=== PATIENT | male | born 1965 | race Caucasian/White ===

== ENCOUNTER 2024-06-11 23:32 | Inpatient (IN) | payer MEDICARE, SELFPAY ==
[2024-06-11] VITALS (13 sets, daily range): BP systolic 131–158; BP diastolic 74–109; BMI 25.1
[2024-06-11 16:13] LABS: % Basophils 0.7 % (0-2); % Eosinophils 0.8 % (0-6); % Immature Granulocytes 0.2 % (0-0.5); % Lymphocytes 17.4 % (20.5-51.1); % Monocytes 9.5 % (1.7-9.3); % Neutrophils 71.4 % (42.2-75.2); Absolute Eosinophils 0.1 10^3/uL (0-0.7); Absolute Monocytes 0.6 10^3/uL (0.1-0.6); Absolute Neutrophils 4.3 10^3/uL (1.4-6.5); Hematocrit 37.4 % (39.0-52.0); Hemoglobin 12.9 g/dL (13.0-18.0); Mean Corp Hgb Conc. 34.5 g/dL (33.0-37.0); Mean Corpuscular Hgb 31.5 pg (27.0-31.0); Mean Corpuscular Volume 91.2 fL (80.0-94.0); Nucleated Red Blood Cells % 0 % (-); Red Cell Dist. Width 13.8 % (11.5-14.5)
--- NOTE | 2024-06-11 16:14 | ED.GENMED ---
History of Present Illness
<WHITNEY Jacobson - Last Filed: 06/13/24 23:21>
General
Chief Complaint: Fall
Source: patient
Exam Limitations: none
Time Seen by Provider: 06/11/24 15:59
Nursing documentation reviewed up to this point in time: agreed with
History of Present Illness
History of Present Illness:
Patient is a 59-year-old male with history of cancer, alcohol abuse, DE/hypertension hyperlipidemia reflux GI bleed presents to the ER for evaluation. Patient reports he was on the toilet and started to have shaking in his right arm and pain which
radiated to his chest. He reports it lasted for about a minute and he fell over into the bathtub. He denies hitting his head. He denies any headache. He was able to get himself up and called EMS. He denies any chest pain or pain now.
Pt admits to drinking alcohol last night around 8 pm.
Denies history of withdrawal seizures.
PT reports he is currently being treated at [facility]'s oncology for obvious signs of lymphoma for 'lymph node cancer .'He receives infusions every 3 weeks. Pt also mentions history of melanoma.
He reports he stopped all of his cardiac meds due to expense and no longer takes ASA or blood thinners.
Past History
<WHITNEY Jacobson - Last Filed: 06/13/24 23:21>
Past History
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
ED Past Surgical History: Orthopedic
Social History
Tobacco: Former smoker
Alcohol: Daily
Drug: Marijuana (Medical marijuana)
Personal: Partner
Living: with family (Resides with girlfriend.)
Employment: Disabled
Family History
Family History: CAD
Phy Exam
<WHITNEY Jacobson - Last Filed: 06/13/24 23:21>
General Physical Exam
General Presentation: no apparent distress
General age: appears stated age
General Skin: warm and dry
General Habitus: elderly
General Mental: alert
General Hydration: dry mucous membranes
Cardiovascular Exam
Cardiovascular Exam: tachycardia
Pulmonary Exam
Pulmonary Exam: lungs clear and no respiratory distress
Neurological Exam
Neurological Exam: alert, oriented x3, no motor deficits and no sensory deficits
[place] Coma Scale
Eye Opening: Spontaneous
Verbal Response: Oriented
Motor Response: Obeys Commands
GCS Total Score: 15
Musculoskeletal Exam
Musculoskeletal Exam: full ROM
Skin Exam
Skin Exam: normal color and warm/dry
Psychiatric Exam
Psychiatric Exam: normal mood/affect
Course
<WHITNEY Jacobson - Last Filed: 06/13/24 23:21>
Orders/Labs/Results
Orders:
Orders
06/11/24 15:52
Electrocardiogram (*1) Urgent
Reason for Study: Chest Pain
Cardiac Monitoring- Treatment ONCE
EKG- Treatment ONCE
IV Insert/Care/Rem.- Treatment PRN
06/11/24 15:59
Complete Blood Count/With Diff Urgent
Comprehensive Metabolic Panel Urgent
Troponin I Urgent
06/11/24 16:17
0.9% Sodium Chloride 1000 ml [Nss] 1,000 ml IV BOLUS
06/11/24 16:19
CT Head W/o Iv Contrast Urgent
Comment:
Reason For Exam: trauma
06/11/24 16:51
CT Cervical Spine W/o Iv Contr Urgent
Comment:
Reason For Exam: trauma
06/11/24 17:47
Dexamethasone Sod Phosphate [Decadron] 6 mg IV NOW STA
Levetiracetam Injectable [Keppra] 1,000 mg IV NOW STA
06/11/24 18:19
Dexamethasone Sod Phosphate [Decadron] 4 mg .ROUTE .STK-MED ONE
06/11/24 18:20
Lorazepam [Ativan] 0.5 mg IV NOW STA
06/11/24 21:40
IV Insert/Care/Rem.- Treatment PRN
06/11/24 21:52
Type+Screen Urgent
PT/INR [Prothrombin Time] Urgent
PTT Urgent
06/11/24 22:47
Lorazepam [Ativan] 0.5 mg IV NOW STA
06/11/24 23:00
Admit/Transfer Patient As Directed
Co-Sign Provider:
Level of Care: Inpatient admission
Assign to:: IMU- Intermediate Care
Physician / Group: hospitalist
Diagnosis: seizure, metastatic brain disease
Reason for Hospitalization: seizure
Expected length of stay greater than two midnights?: Yes
ELOS- Estimated Length of Stay in days: 2
I certify the patient meets the requirements for IP care: Yes
06/11/24 23:01
Code Status As Directed
Resuscitation Status: Full Code
PRN Pain Medication Management As Directed
May give lesser potent ordered pain med per pt: Yes
preference::
Protocol:: Medication orders for pain may be administered in a
manner that supports deferring to patient preference
when the pt is:
- Requesting an ordered lesser potent pain medication.
Least to most potent pain medications are defined
as: acetaminophen < NSAID < tramadol < opioids
(morphine, oxycodone, hydromorphone).
- Requesting a lesser dose of the same medication IF
ORDERED.
- Requesting a less intrusive route of administration
if both routes are prescribed by the provider (PO <
IV).
06/12/24 00:15
0.9% Sodium Chloride [Nss (Preservative Free)] See Protocol IV PRN PRN
Acetaminophen [Tylenol/Feverall] 650 mg RECTAL Q4HPRN PRN
Acetaminophen [Tylenol] 650 mg PO Q4HPRN PRN
FOLic ACID [Folvite] 1 mg 0.9% Sodium Chloride 50 ml [Nss] 50 ml IV DAILYPRN
Labetalol HCl [Trandate] 10 mg IV Q6HPRN PRN
Lorazepam [Ativan] 1 mg IV Q1HPRN PRN
Lorazepam [Ativan] 1 mg PO Q2HPRN PRN
Lorazepam [Ativan] 2 mg IV Q1HPRN PRN
06/12/24 00:15
Consult Notification Routine
Specialty to Notify: Neurology
Date consulting provider notified: 06/12/24
Time consulting provider notified: 07:10
Notified:: Service
NEUROLOGY CONSULT Urgent
Consulting Provider: Jani Ghosh
Was physician already notified: No
Reason for consult: new hemorrhagic brain mets with vasogenic edema and right sided partial sz
Activity As Directed
Activity Level: With Assistance
Bedside Glucose Monitoring As Directed
Frequency: AC&HS
Head of Bed-Restrictions As Directed
Elevation Level: 30 degress
MSAS SCORE As Directed
MSAS Score 0-4: Repeat MSAS every 2 hours until 0-4 for three consecutive assessments, then every 4 hours x 48
hours.
MSAS Score 5-7: For MILD withdrawl symptoms. Repeat MSAS and RASS every 2 hours
MSAS Score 8-11: For MODERATE withdrawal symptoms. Repeat MSAS and RASS every 1 hour. Consider ICU or IMU
level of care.
MSAS Score > 11: For SEVERE withdrawal symptoms. Repeat MSAS and RASS every 1 hour. Notify provider, consider
ICU level of care.
MSAS Additional Instructions: If no improvement or no decrease in score from severe to moderate within 12
hours, consult psychiatry
MSAS Notify Provider: Notify provider if patient requires more than 10 mg of Lorazepam in eight hour period.
NIH Stroke Scale As Directed
Directions: Per protocol
Comment: every shift and with any change in condition or mental status
Neurological Checks As Directed
Frequency: q4h
Additional Instructions:: q4h x 24 hours, then every shift and with any change in condition or mental status.
Pneumatic Compression Sleeves As Directed
Type: Knee high
Precautions As Directed
Type of Precautions: Seizure
Vital Signs As Directed
Frequency: Per unit guidelines
Additional Instructions:: goal SBP 120-140 mmHg
Pt Eval And Treat Routine
Activity Level: With Assistance
DX Deep Vein Thrombosis Video Routine
06/12/24 01:00
Dexamethasone Sod Phosphate [Decadron] 4 mg IV Q6
06/12/24 05:00
Levetiracetam Injectable [Keppra] 750 mg IV Q12H
06/12/24 06:01
Basic Metabolic Panel IN AM
Cardiovascular Evaluation IN AM
Complete Blood Count/No Diff IN AM
Glycohemoglobin (HgbA1c) IN AM
Magnesium IN AM
Phosphorus IN AM
06/12/24 07:30
Insulin Aspart Corrective Mod [Novolog Flexpen-Moderate Resistance] See Protocol SC AC
06/12/24 08:00
Docusate Sodium [Colace] 100 mg PO BID
FOLic ACID [Folvite] 1 mg PO DAILY
Lisinopril [Zestril] 2.5 mg PO DAILY
Metoprolol Xl [Toprol Xl] 25 mg PO DAILY
Thiamine Injection 200 mg IV Q12
06/12/24 Dinner
1800 calorie (15 carb) Diabetic
At Your Request: Full Participation
Does patient need a safe tray?: No
06/12/24 22:00
Insulin Glargine Lantus [Lantus] 5 units Subcutaneous Insulin Syringe [Syringe-Insulin] 0 unit SC HS
06/15/24 08:00
Thiamine HCl [Vitamin B1] 100 mg PO BID
Abnormal Lab Results
06/11/24 06/11/24
15:59 21:52
RBC 4.10 L 10^6/uL
(4.70-6.10)
Hgb 12.9 L g/dL
(13.0-18.0)
Hct 37.4 L %
(39.0-52.0)
MCH 31.5 H pg
(27.0-31.0)
Plt Count 82 L 10^3/uL
(130-400)
Absolute Lymphs (auto) 1.0 L 10^3/uL
(1.2-3.4)
Lymphocytes % 17.4 L %
(20.5-51.1)
Monocytes % 9.5 H %
(1.7-9.3)
PT 14.8 H Sec
(11.4-14.6)
Sodium 133 L mmol/L
(135-145)
Potassium 3.3 L mmol/L
(3.5-5.1)
Chloride 90 L mmol/L
(98-107)
BUN 5 L mg/dl
(9-20)
Creatinine 0.6 L mg/dL
(0.7-1.3)
Glucose 207 H mg/dl
(70-99)
Total Bilirubin 4.1 H mg/dl
(0.2-1.3)
AST 161 H U/L
(17-59)
Alkaline Phosphatase 155 H U/L
(38-126)
06/11/24 15:59
06/11/24 15:59
Vital Signs
Initial and Last Documented VS:
Initial Vital Signs
Pulse Resp BP Pulse Ox
120 14 131/94 98
06/11/24 15:52 06/11/24 15:52 06/11/24 15:52 06/11/24 15:52
Last Documented Vital Signs
Temp Pulse Resp BP Pulse Ox
97.5 F 79 25 105/73 96
06/13/24 19:39 06/13/24 21:36 06/13/24 21:36 06/13/24 21:36 06/13/24 20:[address] Interpreter consulted with Physician
Certified Court Interpreter consulted with physician?: Yes
Name of Physician Consulted: DR Pandya
<Toribio Pandya MD - Last Filed: 06/12/24 13:55>
Orders/Labs/Results
Orders:
Orders
06/11/24 15:52
Electrocardiogram (*1) Urgent
Reason for Study: Chest Pain
Cardiac Monitoring- Treatment ONCE
EKG- Treatment ONCE
IV Insert/Care/Rem.- Treatment PRN
06/11/24 15:59
Complete Blood Count/With Diff Urgent
Comprehensive Metabolic Panel Urgent
Troponin I Urgent
06/11/24 16:17
0.9% Sodium Chloride 1000 ml [Nss] 1,000 ml IV BOLUS
06/11/24 16:19
CT Head W/o Iv Contrast Urgent
Comment:
Reason For Exam: trauma
06/11/24 16:51
CT Cervical Spine W/o Iv Contr Urgent
Comment:
Reason For Exam: trauma
06/11/24 17:47
Dexamethasone Sod Phosphate [Decadron] 6 mg IV NOW STA
Levetiracetam Injectable [Keppra] 1,000 mg IV NOW STA
06/11/24 18:19
Dexamethasone Sod Phosphate [Decadron] 4 mg .ROUTE .STK-MED ONE
06/11/24 18:20
Lorazepam [Ativan] 0.5 mg IV NOW STA
06/11/24 21:40
IV Insert/Care/Rem.- Treatment PRN
06/11/24 21:52
Type+Screen Urgent
PT/INR [Prothrombin Time] Urgent
PTT Urgent
06/11/24 22:47
Lorazepam [Ativan] 0.5 mg IV NOW STA
06/11/24 23:00
Admit/Transfer Patient As Directed
Co-Sign Provider:
Level of Care: Inpatient admission
Assign to:: IMU- Intermediate Care
Physician / Group: hospitalist
Diagnosis: seizure, metastatic brain disease
Reason for Hospitalization: seizure
Expected length of stay greater than two midnights?: Yes
ELOS- Estimated Length of Stay in days: 2
I certify the patient meets the requirements for IP care: Yes
06/11/24 23:01
Code Status As Directed
Resuscitation Status: Full Code
PRN Pain Medication Management As Directed
May give lesser potent ordered pain med per pt: Yes
preference::
Protocol:: Medication orders for pain may be administered in a
manner that supports deferring to patient preference
when the pt is:
- Requesting an ordered lesser potent pain medication.
Least to most potent pain medications are defined
as: acetaminophen < NSAID < tramadol < opioids
(morphine, oxycodone, hydromorphone).
- Requesting a lesser dose of the same medication IF
ORDERED.
- Requesting a less intrusive route of administration
if both routes are prescribed by the provider (PO <
IV).
06/12/24 00:15
0.9% Sodium Chloride [Nss (Preservative Free)] See Protocol IV PRN PRN
Acetaminophen [Tylenol/Feverall] 650 mg RECTAL Q4HPRN PRN
Acetaminophen [Tylenol] 650 mg PO Q4HPRN PRN
FOLic ACID [Folvite] 1 mg 0.9% Sodium Chloride 50 ml [Nss] 50 ml IV DAILYPRN
Labetalol HCl [Trandate] 10 mg IV Q6HPRN PRN
Lorazepam [Ativan] 1 mg IV Q1HPRN PRN
Lorazepam [Ativan] 1 mg PO Q2HPRN PRN
Lorazepam [Ativan] 2 mg IV Q1HPRN PRN
06/12/24 00:15
Consult Notification Routine
Specialty to Notify: Neurology
Date consulting provider notified: 06/12/24
Time consulting provider notified: 07:10
Notified:: Service
NEUROLOGY CONSULT Urgent
Consulting Provider: Jani Ghosh
Was physician already notified: No
Reason for consult: new hemorrhagic brain mets with vasogenic edema and right sided partial sz
Activity As Directed
Activity Level: With Assistance
Bedside Glucose Monitoring As Directed
Frequency: AC&HS
Head of Bed-Restrictions As Directed
Elevation Level: 30 degress
MSAS SCORE As Directed
MSAS Score 0-4: Repeat MSAS every 2 hours until 0-4 for three consecutive assessments, then every 4 hours x 48
hours.
MSAS Score 5-7: For MILD withdrawl symptoms. Repeat MSAS and RASS every 2 hours
MSAS Score 8-11: For MODERATE withdrawal symptoms. Repeat MSAS and RASS every 1 hour. Consider ICU or IMU
level of care.
MSAS Score > 11: For SEVERE withdrawal symptoms. Repeat MSAS and RASS every 1 hour. Notify provider, consider
ICU level of care.
MSAS Additional Instructions: If no improvement or no decrease in score from severe to moderate within 12
hours, consult psychiatry
MSAS Notify Provider: Notify provider if patient requires more than 10 mg of Lorazepam in eight hour period.
NIH Stroke Scale As Directed
Directions: Per protocol
Comment: every shift and with any change in condition or mental status
Neurological Checks As Directed
Frequency: q4h
Additional Instructions:: q4h x 24 hours, then every shift and with any change in condition or mental status.
Pneumatic Compression Sleeves As Directed
Type: Knee high
Precautions As Directed
Type of Precautions: Seizure
Vital Signs As Directed
Frequency: Per unit guidelines
Additional Instructions:: goal SBP 120-140 mmHg
Pt Eval And Treat Routine
Activity Level: With Assistance
DX Deep Vein Thrombosis Video Routine
06/12/24 01:00
Dexamethasone Sod Phosphate [Decadron] 4 mg IV Q6
06/12/24 05:00
Levetiracetam Injectable [Keppra] 750 mg IV Q12H
06/12/24 06:01
Basic Metabolic Panel IN AM
Cardiovascular Evaluation IN AM
Complete Blood Count/No Diff IN AM
Glycohemoglobin (HgbA1c) IN AM
Magnesium IN AM
Phosphorus IN AM
06/12/24 07:30
Insulin Aspart Corrective Mod [Novolog Flexpen-Moderate Resistance] See Protocol SC AC
06/12/24 08:00
Docusate Sodium [Colace] 100 mg PO BID
FOLic ACID [Folvite] 1 mg PO DAILY
Lisinopril [Zestril] 2.5 mg PO DAILY
Metoprolol Xl [Toprol Xl] 25 mg PO DAILY
Thiamine Injection 200 mg IV Q12
06/12/24 Dinner
1800 calorie (15 carb) Diabetic
At Your Request: Full Participation
Does patient need a safe tray?: No
06/12/24 22:00
Insulin Glargine Lantus [Lantus] 5 units Subcutaneous Insulin Syringe [Syringe-Insulin] 0 unit SC HS
06/15/24 08:00
Thiamine HCl [Vitamin B1] 100 mg PO BID
Abnormal Lab Results
06/11/24 06/11/24
15:59 21:52
RBC 4.10 L 10^6/uL
(4.70-6.10)
Hgb 12.9 L g/dL
(13.0-18.0)
Hct 37.4 L %
(39.0-52.0)
MCH 31.5 H pg
(27.0-31.0)
Plt Count 82 L 10^3/uL
(130-400)
Absolute Lymphs (auto) 1.0 L 10^3/uL
(1.2-3.4)
Lymphocytes % 17.4 L %
(20.5-51.1)
Monocytes % 9.5 H %
(1.7-9.3)
PT 14.8 H Sec
(11.4-14.6)
Sodium 133 L mmol/L
(135-145)
Potassium 3.3 L mmol/L
(3.5-5.1)
Chloride 90 L mmol/L
(98-107)
BUN 5 L mg/dl
(9-20)
Creatinine 0.6 L mg/dL
(0.7-1.3)
Glucose 207 H mg/dl
(70-99)
Total Bilirubin 4.1 H mg/dl
(0.2-1.3)
AST 161 H U/L
(17-59)
Alkaline Phosphatase 155 H U/L
(38-126)
06/11/24 15:59
06/11/24 15:59
Vital Signs
Initial and Last Documented VS:
Initial Vital Signs
Pulse Resp BP Pulse Ox
120 14 131/94 98
06/11/24 15:52 06/11/24 15:52 06/11/24 15:52 06/11/24 15:52
Last Documented Vital Signs
Temp Pulse Resp BP Pulse Ox
97.5 F 79 25 105/73 96
06/13/24 19:39 06/13/24 21:36 06/13/24 21:36 06/13/24 21:36 06/13/24 20:15
<WHITNEY Jacobson - Last Filed: 06/13/24 23:21>
MDM/Problems Addressed
Differential Diagnosis Includes:
not limited to: seizure, fall/head injury
MDM/Problems Addressed:
As documented patient is a 59-year-old male with significant past medical history was sitting on the toilet started with right arm shaking right arm pain and chest pain and fell into the bathtub. He denies hitting his head and crawled over to his
girlfriend. they called EMS. Patient presents awake alert he is able to give history. He currently denies any arm pain or chest pain. He denies hitting his head however patient does admit to alcohol abuse and drinks every day. He last drank
last night. With this history CAT scan was done and does show multiple new hemorrhagic intraparenchymal brain metastasis with mild vasogenic edema over the left frontal and left temporal lobe metastasis. Case discussed ED physician MEGHAN Suggs and
IV Decadron ordered. Symptoms concerning for possible focal seizure .
[facility] notified.
I spoke with neuro surg on
call dR Blackwood ,who viewed pt's history of melanoma and feels that findings on CAT scan are most likely melanoma and not necessarily hemorrhage. He does recommend transfer to hospitalist service .
I spoke with DR Richmond who accepts pt to [facility] .
1909: Patient stable resting comfortably, mildly tachycardic. awaiting bed
Chronic conditions affecting care:
Underlying cancer, questionable lymphoma/melanoma, CAD, DE hypertension alcohol abuse
<WHITNEY Jacobson - Last Filed: 06/13/24 23:21>
*Radiology
Radiology exam reviewed: radiology read reviewed
*Pulse Oximetry
Patient hypoxic: no
*Critical Care Note
Total Time (30-74mins, 75-104mins- exclusive of procedures): Not Applicable
<Toribio Pandya MD - Last Filed: 06/12/24 13:55>
Update Note
Update Note:
There is no bed at [place]. Patient does not want to go to the city or elsewhere. Discussed with neurosurgery and report reviewed with neurosurgery as a senior analytic consultant here. They are comfortable having him here. They did want his platelet count
above 100. They also recommended Keppra 750 twice daily. Also Decadron 4 mg every 6
Verbal okay for platelets from the patient. Risk-benefit explained.
ED Attending Note
<WHITNEY Jacobson - Last Filed: 06/13/24 23:21>
-
Portions of this chart may have been created with voice recognition software.� Occasional wrong word or��sound alike� substitutions may have occurred due to the inherent limitations of voice recognition software.
<Toribio Pandya MD - Last Filed: 06/12/24 13:55>
ED Attending Note
Patient seen and examined by attending physician: Yes
I performed the substantive portion of visit, reviewed & personally made and approve the management plan that is documented in note by myself or CADY.: Yes
ED Attending Note:
59-year-old male was going to the bathroom. Started noticing shaking in the right hand that progressed up his arm. He then fell in the tub. No significant trauma except for some mild chest discomfort. No head injury no LOC no neck pain. Patient
is supposed to be on clopidogrel and aspirin but does not take it for financial reasons. He admits to daily alcohol use and has not had a drink since last night. He does not feel he is in florid withdrawal at this time. No other specific
complaints acutely. He is currently being treated for lymphoma.
On exam patient is nontoxic. Fully awake and alert. Using the phone at this time. Mildly tachycardic. Stable vital signs otherwise. Normocephalic atraumatic. Neck nontender. No respiratory distress. Again tacky and regular. Nonfocal. Warm
and dry. Old sternotomy scar. No obvious chest wound. No obvious trauma.
CT scan shows multiple intraparenchymal lesions with hemorrhage. Some edema. Consistent with metastatic issue. Patient will be started on steroids. Keppra. Small dose of Ativan. Referral to [place] where his physicians are and where
neurosurgery is present
Discharge Plan
Departure
Patient Disposition: Acute Care Hospital
Date of Disposition: 06/11/24
Time of Disposition: 18:15
Discharge Problem:
brain metastasis, possible focal seizure
Hospital Transfer
Other hospital: [facility]
I certify that the patient requires transfer: Yes
Discussed case with accepting physician: Basilio
Reason for transfer: higher level of care
Interventions
Interventions:
*General Assessment Last Done: 06/11/24 15:53
*Neglect/Abuse Screening Last Done: 06/11/24 15:54
ED- Fall Risk Assessment Last Done: 06/12/24 02:09
*Nursing Disposition Last Done: 06/13/24 19:21
ED-Musculoskeletal Assessment Last Done: 06/12/24 02:09
ED- Neurological Assessment Last Done: 06/12/24 08:12
ED-Skin Assessment Last Done: 06/12/24 02:09
Discharge Date and Time
Discharge Date/Time: 06/13/24 19:27
[2024-06-11 16:33] LABS: AST (SGOT) 161 U/L (17-59); Albumin 3.9 g/dl (3.5-5.0); Alkaline Phosphatase 155 U/L (38-126); Blood Urea Nitrogen 5 mg/dl (9-20); Calcium 8.6 mg/dl (8.4-10.2); Carbon Dioxide 27 mmol/L (22-30); Chloride 90 mmol/L (98-107); Estimated Creatinine Clearance > 125 ml/min; Glucose 207 mg/dl (70-99); Potassium 3.3 mmol/L (3.5-5.1); Sodium 133 mmol/L (135-145); Total Bilirubin 4.1 mg/dl (0.2-1.3); Total Protein 7.8 g/dl (6.3-8.2); eGFR > 60.00
[2024-06-11 16:37] LABS: Mean Platelet Volume 10.4 fL (7.4-10.4); Platelet Count 82 10^3/uL (130-400)
[2024-06-11] MEDS: NSS 1000 IV (16:38)
[2024-06-11 16:42] LABS: ALT (SGPT) 47 U/L (0-50)
[2024-06-11 16:45] LABS: Troponin I 0.019 ng/ml
[2024-06-11] MEDS: DECADRON 6 MG IV (18:18)
[2024-06-11] MEDS: KEPPRA 1000 MG IV (18:20)
[2024-06-11] MEDS: ATIVAN 0.5 MG IV ×2 (18:32→23:39)
[2024-06-11 22:11] LABS: INR 1.13; PT 14.8 Sec (11.4-14.6)
[2024-06-11 22:12] LABS: APTT 28.3 Sec (23.4-35.0)
--- NOTE | 2024-06-11 22:42 | HPS.HSE ---
Family Physician
-
Family Physician: * NONE
Chief Complaint
-
Fall, seizure
History of Present Illness
This is a 59-year-old male who has a past medical history significant for alcohol dependence, CAD status post MO and CABG, prior history is including hypertension, diabetes, hyperlipidemia, lymphoma on chemotherapy who presents to the emergency
department following a seizure-like episode and fall.
Patient reports that he was sitting down at around 2 PM today. He started having a crampy uncontrolled contraction of his hands. This extended from the hands all the way to the pectoral muscle. He did note to the pectoral muscle odalis
spontaneously discussed them to stretch out and fall backwards. He denied any loss of consciousness. He still has crampy pain in the right leg as well. He denies any injuries. He denies any prior seizures.
Patient gets to chemotherapy infusions every 3 weeks. He last had an MRI 3 weeks ago and stated that the MRI did not show any brain tumor. He drinks regularly stating that his last drink was around 11 PM yesterday. At that time the patient said
he had about 4 shots and 3 beers. This is his his usual alcohol intake. He denies history of prior withdrawals and withdrawal seizures.
Patient denies taking any medications at home. He he reports being only on the infusions.
On arrival in the emergency department he did not have any foreign muscle contractions. He was hypertensive with a blood pressure 150/90 with a pulse of 120 and satting 98% on room air. His temp was 98.1. CBC was remarkable for a platelet count
of 82 but otherwise unremarkable. Labs notable for sodium of 133 and a potassium of 3.3. BUN and creatinine were completely normal. His troponin was negative. The bilirubin was elevated at 4.1 with a AST of 160.
CT of the head and C-spine shows new multiple brain mets with 2.0 cm in the left frontal lobe, (2) 1.3 cm in the left temporal lobe, (3) 1.0 cm in the right temporal lobe, and (4) 9 mm in the right cerebellar hemisphere.
2. Mild vasogenic edema around the left frontal and left temporal lobe metastases. No midline shift.
Case discussed with neurosurgery. Patient is pending transfer to [place] where he follows with oncology. While pending transfer the patient is able to stay here with medical management at this time.
Medical History
Past Medical History
Past Medical History: Reports CAD (CAD status post CABG), HTN and IDDM
Additional Past Medical History:
EtOH dependence
Past Surgical History: Reports Cardiac (Triple-vessel CABG)
Social History
Tobacco: Non-smoker
Alcohol: Daily
Drug: None
Personal: Single
Living: Alone
Family History
Family History: Not pertinent
Allergies / Home Medications
Allergies reflects when Allergies were last updated in [facility].
Home Medications with original date entered in [facility]
Allergy/Medication List:
Allergies
Allergy/AdvReac Type Severity Reaction Status Date / Time
No Known Drug Allergies Allergy Unknown Verified 04/06/23 21:51
simvastatin AdvReac Mild Myalgia Verified 04/06/23 21:51
Home Medications
omeprazole magnesium 20 mg tablet,delayed release (Prilosec OTC) 20 mg PO BID Gastrointestinal issue 02/07/20
acetaminophen 325 mg tablet 650 mg (2 x 325 mg) PO Q4HPRN PRN mild pain,headache,temp >101F 02/19/20
aspirin 81 mg chewable tablet 81 mg PO DAILY #0 tabs 02/19/20
atorvastatin 40 mg tablet 40 mg PO QPM #30 tabs 02/19/20
blood sugar diagnostic (Blood Glucose Test strips) #200 strips 02/19/20
clopidogrel 75 mg tablet 75 mg PO DAILY #30 tabs 02/19/20
furosemide 40 mg tablet (Lasix) 40 mg PO DAILY #5 tabs 02/19/20
insulin aspart U-100 100 unit/mL (3 mL) subcutaneous pen (Novolog FlexPen U-100 Insulin aspart) 7 units (0.07 mL) SC TID ##5 02/19/20
insulin glargine 100 unit/mL (3 mL) subcutaneous pen (Lantus Solostar U-100 Insulin) 12 units (0.12 mL) SC HS ##5 02/19/20
lancets 30 gauge #200 ea 02/19/20
lisinopril 2.5 mg tablet 2.5 mg PO DAILY #30 tabs 02/19/20
metoprolol succinate 50 mg tablet,extended release 24 hr 50 mg PO DAILY #30 tabs 02/19/20
oxycodone 5 mg tablet 5 mg PO Q6HPRN PRN Moderate-Severe Pain #28 tabs 02/19/20
pen needle, diabetic 32 gauge x ' ##200 02/19/20
potassium chloride 20 mEq tablet,extended release(part/cryst) (Klor-Con M) 20 meq PO DAILY #5 tabs 02/19/20
hydrocodone 5 mg-acetaminophen 325 mg tablet 1 tab PO Q4HPRN PRN breakthrough pain #10 tabs 08/18/21
oxycodone-acetaminophen 5 mg-325 mg tablet 1 tab PO Q4HPRN PRN pain #14 tabs 08/18/21
fentanyl 12 mcg/hr transdermal patch 12 mcg transdermal Q72H #10 patches 08/20/21
gabapentin 300 mg capsule 300 mg PO TID #20 caps 08/20/21
hydromorphone 2 mg tablet 2 - 4 mg (1 - 2 x 2 mg) PO Q4HPRN PRN pain #20 tabs 08/20/21
hydromorphone 2 mg tablet (Dilaudid) 2 mg PO Q6H PRN pain #10 tabs 04/11/22
Review of Systems
-
History Source: Patient
Constitutional: Reports No Symptoms
EENT: Reports No Symptoms
Respiratory: Reports No Symptoms
Cardiac: Reports No Symptoms
Abdomen/GI: Reports No Symptoms
: Reports No Symptoms
Musculoskeletal: Reports Muscle Pain
Skin: Reports No Symptoms
Neurological: Reports Weakness
Endocrine: Reports No Symptoms
Hematologic/Lymphatic: Reports No Symptoms
Psych: Reports No Symptoms
Physical Exam
Vital Signs
Vital Signs
Temp Pulse Resp BP Pulse Ox
98.7 F 116 15 149/74 96
06/11/24 22:38 06/11/24 22:38 06/11/24 22:38 06/11/24 22:38 06/11/24 22:38
Physical Exam
General: No Apparent Distress and Comfortable
HEENT: NormoCephalic, Anicteric and Moist mucous membranes
Respiratory: Clear
Cardiac: S1/S2 and Regular Rhythm
Breast: Deferred by me
GI: Soft, Non Tender, Non Distended and Normal Bowel Sounds
Rectal: Deferred by Provider
Genito-urinary: Deferred by me
Musculoskeletal: No Clubbing, No Cyanosis and No Edema
Neuro: AO x 3, No Motor Deficits, Cranial Nerves Intact and No Sensory Deficits
Psych: Calm
Laboratory Results
-
06/11/24 15:59
06/11/24 15:59
Laboratory Results
PT 14.8 Sec (11.4-14.6) H 06/11/24 21:52
INR 1.13 06/11/24 21:52
APTT 28.3 Sec (23.4-35.0) 06/11/24 21:52
Total Bilirubin 4.1 mg/dl (0.2-1.3) H 06/11/24 15:59
AST 161 U/L (17-59) H 06/11/24 15:59
ALT 47 U/L (0-50) 06/11/24 15:59
Alkaline Phosphatase 155 U/L (38-126) H 06/11/24 15:59
Troponin I 0.019 ng/ml 06/11/24 15:59
Data Reviewed
-
CT Scan: Report Reviewed by me
Lab Data: Labs Reviewed by me
Old Records: Reviewed
Impression/Plan
-
IMPRESSION:
59-year-old with history of CAD status post CABG, insulin-dependent diabetes, hypertension, lymphoma on cycle 5 of 3 weeks infusion of 2 chemotherapeutic agents (patient does not know) and follows at [facility]ology presenting to the emergency
department with apparent new onset partial seizure activity. Imaging here shows multiple new intraparenchymal hemorrhagic brain masses likely from his known cancer. There is vasogenic edema. No midline shift. Currently without seizure activity.
No focal neurological deficits. No nausea or vomiting. D/W neurosurg with recommendation to transfer to [facility]. No current available. bed there. Imaging does not merit neurosurgical intervention urgently.
' ED already spoke with neurosurgery at [place] who recommended transfer to hospitalist at [facility]. There is lack of bed availability according to Dr. Pandya.
Accepting phsyician at [facility] is Dr. Richmond
PLAN:
1. Partial seizures with hemorrhagic brain mass and mild vasogenic edema
- admit to imu
- continue keppra 750m q 12
- lorazepam prn seizure
- dexamethasone 4g IV q6
- tansfuion to keep plt > 100 per surgery
- keep SBP < 140, with prn labetolol and hydralazine for now
- start metoprolol succinate 25mg daily and lisinopril 2.5 daily
- neurochecks q 2 - 4 hours
- consider mri if not transferred in am
- neurology consult
2. ETOH dependence - Drinks regularly 3 - 4shots per night with additional beer intake. No prior withdrawals. Last drink 24 hours ago.
- mod risk withdrawal protocol with benzos for now
3. CAD - Patient is s/p cabg several years ago. No stents. No compliant and has not been on any medications recently.
- holding aspirin for now
- rate and bp control with metoprolol as above, holding statin
- ntg prn chest pain w/o seizure
4. Prior IDDM. Glucose 207 today. Does not kevin any medications.
- given steroids will place on moderate sliding scale for now
- lantus 5 hs and titrate
DVT PPX - SCDs
Code status - full code
[2024-06-12] VITALS (31 sets, daily range): BP systolic 114–170; BP diastolic 56–105; PULSE 61; O2SAT 96; BMI 25.1
[2024-06-12 01:19] LABS: Glucose - Point of Care 196 mg/dl (70-99)
[2024-06-12] MEDS: DECADRON 4 MG IV ×4 (01:28→17:24)
[2024-06-12] MEDS: TRANDATE 10 MG IV (02:40)
[2024-06-12] MEDS: KEPPRA 750 MG IV ×2 (05:11→17:23)
[2024-06-12 06:27] LABS: Hematocrit 32.6 % (39.0-52.0); Hemoglobin 11.5 g/dL (13.0-18.0); Mean Corp Hgb Conc. 35.3 g/dL (33.0-37.0); Mean Corpuscular Hgb 32.1 pg (27.0-31.0); Mean Corpuscular Volume 91.1 fL (80.0-94.0); Mean Platelet Volume 10.7 fL (7.4-10.4); Platelet Count 80 10^3/uL (130-400); Red Blood Cell Count 3.58 10^6/uL (4.70-6.10); Red Cell Dist. Width 13.7 % (11.5-14.5); White Blood Cell Count 4.2 10^3/uL (4.8-10.8)
[2024-06-12 06:53] LABS: Blood Urea Nitrogen 7 mg/dl (9-20); Calcium 7.8 mg/dl (8.4-10.2); Carbon Dioxide 29 mmol/L (22-30); Chloride 95 mmol/L (98-107); Estimated Creatinine Clearance > 125 ml/min; Glucose 202 mg/dl (70-99); HDL Cholesterol 53 mg/dl; LDL Cholesterol, Calculated 182 mg/dl; Phosphorus 2.9 mg/dl (2.5-4.5); Potassium 3.3 mmol/L (3.5-5.1); Total Cholesterol 266 mg/dl (50-199); Triglyceride 156 mg/dl (10-149); Very Low Density Lipoprotein 31 mg/dl (0-30); eGFR > 60.00
[2024-06-12 07:12] LABS: Sodium 135 mmol/L (135-145)
[2024-06-12] MEDS: THIAMINE INJECTION 200 MG IV (07:14)
[2024-06-12] MEDS: FOLVITE 1 MG PO (07:17)
[2024-06-12] MEDS: COLACE 100 MG PO (07:17)
[2024-06-12] MEDS: ZESTRIL 2.5 MG PO (07:17)
[2024-06-12] MEDS: TOPROL XL 25 MG PO (07:17)
[2024-06-12 09:16] LABS: Glucose - Point of Care 208 mg/dl (70-99)
[2024-06-12] MEDS: NOVOLOG FLEXPEN-MODERATE RESISTANCE 3 UNITS SC ×3 (09:16→17:29)
[2024-06-12] MEDS: KCL 40 MEQ PO (10:21)
[2024-06-12] MEDS: NOVOLOG FLEXPEN 3 UNITS SC ×3 (10:22→17:30)
[2024-06-12] MEDS: NSS (PRESERVATIVE FREE) 10 ML IV (10:22)
[2024-06-12] MEDS: PROTONIX IV 40 MG IV (10:22)
[2024-06-12] MEDS: MAGNESIUM SULFATE 100 IV (10:33)
--- NOTE | 2024-06-12 11:23 | W.PN.HOSP.TC ---
Today's Communication/Plan
-
Await transfer to [place]
Insulin added
Accu-Cheks
Blood pressure control
Transfusion of platelets
Assessment / Plan
Assessment / Plan
59-year-old had a fall and seizure he was sitting down had cramping and uncontrolled contraction of his hands when he fell backwards also had a cramping pain in the leg as well. He has lymphoma and on chemotherapy last infusion was 3 weeks ago. He
had an MRI 3 weeks ago. He drinks regularly and last drink was 11 PM on the night prior to admission. Had 4 shots and 3 beers which is his usual alcohol intake
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 Severe neural foraminal narrowing C4-C5.
Mild spinal cord compression C2-C3, C3-C4, C5-C6. Severe neural foraminal narrowing C5-C6. Severe calcific atherosclerotic plaque in the proximal internal carotid arteries.
Head CT-multiple new hemorrhagic intraparenchymal brain metastasis 2 cm in the left frontal lobe, 1.3 cm in the left temporal lobe, 1.0 cm in the right temporal lobe, 9 mm in the right cerebellar hemisphere. Mild vasogenic edema and left frontal
and left temporal lobe metastasis. No midline shift. Mild to moderate diffuse cerebral and cerebellar volume loss.
CVS: S1-S2 normal
Chest: CTA B/L
Abdomen: Soft, NT , Bowel sounds present
Extremities: No edema,
DRILL SHARPENER OPERATOR: No facial droop, no sensorimotor deficits, mild left pronator drift, reflexes equal bilaterally
# Partial seizures with hemorrhagic brain mass with mild vasogenic edema
Keppra 750 twice daily
As needed lorazepam
Decadron 4 mg IV every 6h
Transfuse to keep platelets more than 100
Transfuse more platelets this morning
Keep blood pressure less than 140 mmHg systolic with as needed labetalol and hydralazine
Neurochecks
Neurology evaluation
Awaiting transfer to [place] was accepted by Dr. Mckenzie
# On treatment for melanoma -diagnosed in January 2024 with right flank excision of the lesion
Stated that he had 2 lymph nodes were removed from the right axilla per patient he gets treated at at [facility]
He gets the chemotherapy
PET scan April 2024 without any abnormal osseous lesions
I do not see an MRI of the brain done at that time but [facility]
# Hypokalemia-replace
# Hypomagnesemia-replace
# Thrombocytopenia with DRILL SHARPENER OPERATOR findings transfuse 1 more unit of platelets
# Alcohol dependence and alcohol use daily
Watch for withdrawal
Thiamine
MSAS protocol
# Coronary disease history of CABG several years ago
Hold aspirin
Beta-richard started
Statin
# Hypertension-started on lisinopril and metoprolol. Continue as needed hydralazine, labetalol
# Diabetes
Sugars will run high with steroids
Lantus and NovoLog
# Atherosclerosis of internal carotid arteries. Eventually needs carotid ultrasound. Continue statin. No aspirin
# Vaping- Needs to stop
# GERD-start PPI
# DJD L5-S1
# Ex Smoker
# DVT prophylaxis-SCDs
# Full code
Discussed with nursing at bedside
Medication reconciliation needs to be done
time spent over 50 min
Anticipated Discharge: Within 24 hours
Subjective/Interval History
-
Date of Service: June 12, 2024
Objective Data
-
Labs:
Laboratory Results
06/12/24
06:01
WBC 4.2 L
Hgb 11.5 L
Hct 32.6 L
Plt Count 80 L
Sodium 135
Potassium 3.3 L
Chloride 95 L
Carbon Dioxide 29
BUN 7 L
Creatinine 0.4 L
Glucose 202 H
Calcium 7.8 L
Vital Signs:
Vital Signs
Temp Pulse Resp BP Pulse Ox
98.8 F 85 18 133/61 97
06/12/24 05:19 06/12/24 11:00 06/12/24 11:00 06/12/24 11:00 06/12/24 09:03
I&O
06/11/24 06/12/24 06/13/24
06:59 06:59 06:59
Intake Total 369 / 369
Balance 369 / 369
[2024-06-12 11:26] LABS: Glycohemoglobin (HgbA1c) 6.6 % (4.0-5.6)
--- NOTE | 2024-06-12 12:54 | CON.NEURO ---
Neuro Assessment/Plan
Assessment
head CT imgs rev'd, showing multiple hemorrhagic brain mets L frontal, left posterior temporal, right mid temporal, right cerebellar; with vasogenic edema
CT cervical spine mod/severe disk disease C4/C5, mild spinal cord compression C2/C3, C3/C4, and C5/C6
59 year old man with first time simple partial seizure due to multiple hemorrhagic brain mets
his disk disease and mild spinal cord compression, clinically does not appear myelopathic, no weakness, no brisk reflexes
Plan
agree Keppra 750 BID
agree Decadron 4 mg q6h
routine EEG
with hemorrhagic brain mets, I believe his risk for secondary generalized seizures to be quite high, so no driving 6 months, reported to DMV
d/c aspirin/plavix
accepted to [facility] for transfer, no beds
Consultation
Order
Date of Consultation: 06/12/24
Requesting Provider: Karla Dalton
Reason for Consult: seizure
Subjective/Objective
Subjective Data
Date of Service: June 12, 2024
59-year-old had a fall and seizure he was sitting down had cramping and uncontrolled contraction of his hands when he fell backwards also had a cramping pain in the leg as well. He has lymphoma and on chemotherapy last infusion was 3 weeks ago. He
had an MRI 3 weeks ago. He drinks regularly and last drink was 11 PM on the night prior to admission. Had 4 shots and 3 beers which is his usual alcohol intake
Objective Data
Vital Signs
Temp Pulse Resp BP Pulse Ox
37.1 C 85 18 133/61 97
06/12/24 05:19 06/12/24 11:00 06/12/24 11:00 06/12/24 11:00 06/12/24 09:03
Lab Results
06/12/24 06:01
06/12/24 06:01
PT 14.8 Sec (11.4-14.6) H 06/11/24 21:52
INR 1.13 06/11/24 21:52
APTT 28.3 Sec (23.4-35.0) 06/11/24 21:52
Sodium 135 mmol/L (135-145) 06/12/24 06:01
Potassium 3.3 mmol/L (3.5-5.1) L 06/12/24 06:01
BUN 7 mg/dl (9-20) L 06/12/24 06:01
Glucose 202 mg/dl (70-99) H 06/12/24 06:01
Calcium 7.8 mg/dl (8.4-10.2) L 06/12/24 06:01
Phosphorus 2.9 mg/dl (2.5-4.5) 06/12/24 06:01
LDL Cholesterol, Calc 182 mg/dl 06/12/24 06:01
Patient Allergies
simvastatin Allergy (Verified 06/12/24 10:00)
Myalgia
Physical Exam
-
AAOx3, speech clear, language intact
VFF, EOMI, face symmetric
full strength b/l UE/LE
sensation intact touch/pin, decreased vib at ankles
DTR 1+ symmetric
Medications
-
Active Medications
Generic Name Dose Route Start Last Admin
Trade Name Freq PRN Reason Stop Dose Admin
Acetaminophen 650 mg 06/12/24 00:15
Acetaminophen 325 Mg Tablet PO 07/10/24 00:14
Q4HPRN PRN
temp greater than 38C (100.4F)
Acetaminophen 650 mg 06/12/24 00:15
Acetaminophen 650 Mg Rectal Suppository RECTAL 07/10/24 00:14
Q4HPRN PRN
temp greater than 38C (100.4F)
Dexamethasone Sodium Phosphate 4 mg 06/12/24 01:00 06/12/24 07:14
Dexamethasone 4 Mg/Ml 1 Ml Vial IV 07/10/24 00:59 4 mg
Q6 OTTO Administration
Dextrose 12.5 grams 06/12/24 01:00
Dextrose 50% (0.5 Grams/Ml) 50 Ml Syringe IV 07/10/24 00:59
[id number] PRN
hypoglycemia
Protocol
Docusate Sodium 100 mg 06/12/24 08:00 06/12/24 07:17
Docusate Sodium 100 Mg Capsule PO 07/10/24 07:59 100 mg
BID OTTO Administration
Folic Acid 1 mg 06/12/24 08:00 06/12/24 07:17
Folic Acid 1 Mg Tablet PO 07/10/24 07:59 1 mg
DAILY OTTO Administration
Glucagon 1 mg 06/12/24 01:00
Glucagon 1 Mg Vial IM 07/10/24 00:59
PRN PRN
hypoglycemia - no IV access
Protocol
Hydralazine HCl 5 mg 06/12/24 09:58
Hydralazine 20 Mg/Ml Vial IV 07/10/24 09:57
Q6HPRN PRN
SBP over 140 mm Hg
Insulin Glargine 5 units/ 0.05 mls @ 0 mls/hr 06/12/24 22:00
Device SC 07/10/24 21:59
HS OTTO
As Directed
Folic Acid 1 mg/ Sodium 50.2 mls @ 200.8 mls/hr 06/12/24 00:15
Chloride IV 07/10/24 00:14
DAILYPRN PRN
if NPO
Magnesium Sulfate 4 gram in 100 mls @ 25 mls/hr 06/12/24 09:51 06/12/24 10:33
Magnesium Sulfate IV 06/12/24 13:50 100 mls
NOW STA Administration
Insulin Aspart 0 units 06/12/24 07:30 06/12/24 09:16
Insulin Aspart Moderate Resistance 300 Units/3 Ml Pen.Injctr SC 07/10/24 07:29 3 units
AC OTTO Administration
Protocol
Insulin Aspart 3 units 06/12/24 11:30
Insulin Aspart (100 Units/Ml) 3 Ml Flexpen SC 07/10/24 11:29
AC OTTO
Labetalol HCl 10 mg 06/12/24 00:15 06/12/24 02:40
Labetalol Hcl 5 Mg/1 Ml (20 Mg/4 Ml) Injection IV 07/10/24 00:14 10 mg
Q6HPRN PRN Administration
SBP > 140 mmHg
Levetiracetam 750 mg 06/12/24 05:00 06/12/24 05:11
Levetiracetam (100 Mg/Ml) 500 Mg/5 Ml Vial IV 07/10/24 04:59 750 mg
Q12H OTTO Administration
Lisinopril 2.5 mg 06/12/24 08:00 06/12/24 07:17
Lisinopril 2.5 Mg Tablet PO 07/10/24 07:59 2.5 mg
DAILY OTTO Administration
Lorazepam 1 mg 06/12/24 00:15
Lorazepam 1 Mg Tablet PO 07/10/24 00:14
Q2HPRN PRN
MSAS 5-7
Lorazepam 1 mg 06/12/24 00:15
Lorazepam 2 Mg/Ml Vial IV 07/10/24 00:14
Q1HPRN PRN
MSAS 8-11
Lorazepam 2 mg 06/12/24 00:15
Lorazepam 2 Mg/Ml Vial IV 07/10/24 00:14
Q1HPRN PRN
MSAS > 11
Metoprolol Succinate 25 mg 06/12/24 08:00 06/12/24 07:17
Metoprolol 25 Mg Extended Release Tablet PO 07/10/24 07:59 25 mg
DAILY OTTO Administration
Pantoprazole Sodium 40 mg 06/12/24 10:00 06/12/24 10:22
Pantoprazole Sodium 40 Mg/10 Ml Vial IV 07/10/24 09:59 40 mg
DAILY OTTO Administration
Sodium Chloride 0 ml 06/12/24 00:15
Sodium Chloride 0.9% (Preservative Free) 10 Ml Vial IV 07/10/24 00:14
PRN PRN
To dilute IV Ativan
Protocol
Sodium Chloride 0 flush 06/12/24 01:00
Sodium Chloride 0.9% (Flush) Syringe IV 07/10/24 00:59
PER PROTOCOL OTTO
Sodium Chloride 10 ml 06/12/24 10:00 06/12/24 10:22
Sodium Chloride 0.9% (Preservative Free) 10 Ml Vial IV 07/10/24 09:59 10 ml
DAILY OTTO Administration
Thiamine HCl 200 mg 06/12/24 08:00 06/12/24 07:14
Thiamine (100 Mg/Ml) 2 Ml Vial IV 06/14/24 20:01 200 mg
Q12 OTTO Administration
Thiamine HCl 100 mg 06/15/24 08:00
Thiamine 100 Mg Tablet PO 07/13/24 07:59
BID OTTO
Home Medications
�Medication �Instructions �Recorded
omeprazole magnesium 20 mg 20 mg PO BID Gastrointestinal issue 02/07/20
tablet,delayed release (Prilosec
OTC)
acetaminophen 325 mg tablet 650 mg (2 x 325 mg) PO Q4HPRN PRN 02/19/20
mild pain,headache,temp >101F
aspirin 81 mg chewable tablet 81 mg PO DAILY #0 tabs 02/19/20
atorvastatin 40 mg tablet 40 mg PO QPM #30 tabs 02/19/20
clopidogrel 75 mg tablet 75 mg PO DAILY #30 tabs 02/19/20
furosemide 40 mg tablet (Lasix) 40 mg PO DAILY #5 tabs 02/19/20
insulin aspart U-100 100 unit/mL 7 units SC TID ##5 02/19/20
(3 mL) subcutaneous pen (Novolog
FlexPen U-100 Insulin aspart)
insulin glargine 100 unit/mL (3 12 units SC HS ##5 02/19/20
mL) subcutaneous pen (Lantus
Solostar U-100 Insulin)
lisinopril 2.5 mg tablet 2.5 mg PO DAILY #30 tabs 02/19/20
metoprolol succinate 50 mg 50 mg PO DAILY #30 tabs 02/19/20
tablet,extended release 24 hr
potassium chloride 20 mEq 20 meq PO DAILY #5 tabs 02/19/20
tablet,extended
release(part/cryst) (Klor-Con M)
fentanyl 12 mcg/hr transdermal 12 mcg transdermal Q72H #10 patches 08/20/21
patch
gabapentin 300 mg capsule 300 mg PO TID #20 caps 08/20/21
[2024-06-12 13:23] LABS: Glucose - Point of Care 206 mg/dl (70-99)
--- NOTE | 2024-06-12 15:53 | CM ---
Cm met with pt bedside
Pt resides with his SO/Myra in a 1st floor apartment with 5STE
Pt notes independence with his ADls without any ADs
Has a SPC and WW for use as needed
SO assists with LR dressings, socks, shoes etc
Pt currently receives infusion therapy 3weeks through his onc off ice at [place]
Pt notes he has secondary plan but only good for [facility]
PCP- none
Rx- Mayank Wolff
Per chart review, plan for transfer to [place]
Discharge Disposition- tx to [place]
[2024-06-12 17:29] LABS: Glucose - Point of Care 233 mg/dl (70-99)
[2024-06-13] VITALS (43 sets, daily range): BP systolic 105–183; BP diastolic 49–156; BMI 23.3
[2024-06-13] MEDS: COLACE PO ×2 (01:31→19:54)
[2024-06-13] MEDS: THIAMINE INJECTION IV (01:31)
[2024-06-13] MEDS: DECADRON 4 MG IV ×4 (01:33→17:08)
[2024-06-13] MEDS: LANTUS 0.05 UNITS SC (01:34)
[2024-06-13 01:38] LABS: Glucose - Point of Care 180 mg/dl (70-99)
[2024-06-13] MEDS: KEPPRA 750 MG IV ×2 (05:53→17:09)
[2024-06-13 07:41] LABS: Glucose - Point of Care 162 mg/dl (70-99)
--- NOTE | 2024-06-13 08:48 | EEG.RPT ---
Electroencephalogram Report
Recording
Date of EE06/13/24
Type of EEG: Routine
Length of EEG recordin minutes
Done with Video Recording: Yes
Patient Status: Inpatient
Recording Conditions: Awake and Drowsy
Hyperventilation Performed: No
Photic Stimulation Performed: Yes
Report
LESS THAN 1 HOUR EEG REPORT
LESS THAN 1 HOUR EEG INTERPRETATION:
Unremarkable EEG for age
CLINICAL CORRELATION:
A normal EEG does not rule out a diagnosis of epilepsy. If clinical suspicion for seizure persists, a prolonged recording may be warranted.
Clinical correlation is advised.
METHODS:
A 21 channel digitized electroencephalogram (EEG) was performed using the 10/20 international system of electrode placement and one-lead of ECG recorded. Video was performed.
ELECTROENCEPHALOGRAPHER IMPRESSION(S):
Quality of study
Good
Background
There was an unremarkable anterior-posterior voltage gradient of alpha frequency.
With eye opening the background activity changed to a low voltage mixture of frequencies.
There were no significant asymmetries of background activity noted.
Sleep
Drowsiness present
Hyperventilation
Not performed
Photic Stimulation
No driving
ECG
Normal sinus rhythm
[2024-06-13] MEDS: COLACE 100 MG PO (08:54)
[2024-06-13] MEDS: NSS (PRESERVATIVE FREE) 10 ML IV (08:54)
[2024-06-13] MEDS: FOLVITE 1 MG PO (08:54)
[2024-06-13] MEDS: PROTONIX IV 40 MG IV (08:55)
[2024-06-13] MEDS: THIAMINE INJECTION 200 MG IV ×2 (08:55→20:27)
[2024-06-13] MEDS: TOPROL XL 25 MG PO (08:55)
[2024-06-13] MEDS: ZESTRIL 2.5 MG PO (08:56)
[2024-06-13] MEDS: NOVOLOG FLEXPEN-MODERATE RESISTANCE SC ×3 (09:19→16:50)
[2024-06-13] MEDS: NOVOLOG FLEXPEN 3 UNITS SC (09:20)
[2024-06-13] MEDS: NOVOLOG FLEXPEN-MODERATE RESISTANCE 1 UNITS SC (09:21)
[2024-06-13 09:57] LABS: Hematocrit 35.3 % (39.0-52.0); Hemoglobin 12.2 g/dL (13.0-18.0); Mean Corp Hgb Conc. 34.6 g/dL (33.0-37.0); Mean Corpuscular Hgb 31.8 pg (27.0-31.0); Mean Corpuscular Volume 91.9 fL (80.0-94.0); Mean Platelet Volume 10.9 fL (7.4-10.4); Platelet Count 115 10^3/uL (130-400); Red Blood Cell Count 3.84 10^6/uL (4.70-6.10); White Blood Cell Count 7.5 10^3/uL (4.8-10.8)
[2024-06-13 10:12] LABS: Blood Urea Nitrogen 12 mg/dl (9-20); Carbon Dioxide 28 mmol/L (22-30); Chloride 95 mmol/L (98-107); Estimated Creatinine Clearance > 125 ml/min; Glucose 178 mg/dl (70-99); Magnesium 1.6 mg/dl (1.6-2.3); Potassium 3.8 mmol/L (3.5-5.1); Sodium 135 mmol/L (135-145); eGFR > 60.00
--- NOTE | 2024-06-13 11:31 | W.PN.HOSP.TC ---
Today's Communication/Plan
-
Transfer to [facility] when a bed is available
Assessment / Plan
Assessment / Plan
59-year-old had a fall and seizure he was sitting down had cramping and uncontrolled contraction of his hands when he fell backwards also had a cramping pain in the leg as well. He has lymphoma and on chemotherapy last infusion was 3 weeks ago. He
had an MRI 3 weeks ago. He drinks regularly and last drink was 11 PM on the night prior to admission. Had 4 shots and 3 beers which is his usual alcohol intake
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 Severe neural foraminal narrowing C4-C5.
Mild spinal cord compression C2-C3, C3-C4, C5-C6. Severe neural foraminal narrowing C5-C6. Severe calcific atherosclerotic plaque in the proximal internal carotid arteries.
Head CT-multiple new hemorrhagic intraparenchymal brain metastasis 2 cm in the left frontal lobe, 1.3 cm in the left temporal lobe, 1.0 cm in the right temporal lobe, 9 mm in the right cerebellar hemisphere. Mild vasogenic edema and left frontal
and left temporal lobe metastasis. No midline shift. Mild to moderate diffuse cerebral and cerebellar volume loss.
CVS: S1-S2 normal
Chest: CTA B/L
Abdomen: Soft, NT , Bowel sounds present
Extremities: No edema,
GRADUATE INTERN: No facial droop, no sensorimotor deficits, mild left pronator drift, reflexes equal bilaterally
# Partial seizures with hemorrhagic brain mass with mild vasogenic edema
Keppra 750 twice daily
As needed lorazepam
Decadron 4 mg IV every 6h
Transfuse to keep platelets more than 100 (115 today)
Transfuse more platelets this morning
Keep blood pressure less than 140 mmHg systolic with as needed labetalol and hydralazine
Neurochecks
Neurology evaluation
Awaiting transfer to [facility] was accepted by Dr. Capella
# On treatment for melanoma -diagnosed in January 2024 with right flank excision of the lesion
Stated that he had 2 lymph nodes were removed from the right axilla per patient he gets treated at at [facility]
He gets the chemotherapy
PET scan April 2024 without any abnormal osseous lesions
I do not see an MRI of the brain done at that time but [facility]
# Hypokalemia-replace
# Hypomagnesemia-replace
# Thrombocytopenia -better
# Alcohol dependence and alcohol use daily
Watch for withdrawal
Thiamine
MSAS protocol
# Coronary disease history of CABG several years ago
Hold aspirin
Beta-richard started
Statin
# Hypertension-started on lisinopril and metoprolol. Continue as needed hydralazine, labetalol
# Diabetes
Sugars will run high with steroids
Lantus 6U and NovoLog 4U AC
# Atherosclerosis of internal carotid arteries. Eventually needs carotid ultrasound. Continue statin. No aspirin
# Vaping- Needs to stop
# GERD-start PPI
# DJD L5-S1
# Ex Smoker
# DVT prophylaxis-SCDs
# Full code
Discussed with nursing
Patient has not been taking any medicines prior to coming in
Anticipated Discharge: Today
Subjective/Interval History
-
Date of Service: June 13, 2024
Objective Data
-
Labs:
Laboratory Results
06/13/24
09:36
WBC 7.5
Hgb 12.2 L
Hct 35.3 L
Plt Count 115 L D
Sodium 135
Potassium 3.8
Chloride 95 L
Carbon Dioxide 28
BUN 12
Creatinine 0.5 L
Glucose 178 H
Calcium 8.0 L
Vital Signs:
Vital Signs
Temp Pulse Resp BP Pulse Ox
98.5 F 93 16 128/79 97
06/12/24 19:39 06/13/24 11:00 06/13/24 11:00 06/13/24 11:00 06/13/24 11:00
I&O
06/12/24 06/13/24 06/14/24
06:59 06:59 06:59
Intake Total 369 / 369 253 / 253
Balance 369 / 369 253 / 253
[2024-06-13 11:35] LABS: Glucose - Point of Care 247 mg/dl (70-99)
[2024-06-13] MEDS: MAGNESIUM SULFATE 50 IV (12:00)
--- NOTE | 2024-06-13 12:13 | CM ---
CM reviewed medical records. Plan for transfer to [facility]. CM will remain available as needed.
--- NOTE | 2024-06-13 13:05 | W.PN.NEURO.1 ---
Today's Communication / Plan
-
.
Subjective/Objective
Subjective Data
Date of Service: June 13, 2024
Neurology follow-up note.
HPI: This is a 59-year-old right-handed man who presented to [facility] of his 1 minute of involuntary right arm and hand movement. The patient reports no recurrent events. He denies having headaches, change in vision or recently
started to discontinued medications.
PDMP: No recently prescribed medications.
Labs: Magnesium�1.0-1.6, LDL�182, hemoglobin A1c�6.6 (10.0 (2019)
CT head wo contrast-MULTIPLE NEW HEMORRHAGIC INTRAPARENCHYMAL BRAIN METASTASES: 2.0 cm in the left frontal lobe, 1.3 cm in the left temporal lobe, 1.0 cm in the right temporal lobe, and 9 mm in the right cerebellar hemisphere.
Mild vasogenic edema around the left frontal and left temporal lobe metastases. Mild to moderate diffuse cerebral and cerebellar volume loss.
Routine EEG�normal
PMH: LLL pulmonary mass, malignant melanoma, CAD, DLP, DM, cervical DJD, ETOH addiction, GIB, avascular necrosis of the right femoral head
PSH: right flank excision of malignant melanoma()01/2024), CABG, L HERI
SH: lives with his disabled , former smoker, daily alcohol use
FH: Noncontributory to current presentation.
All: Statins
ROS:Constitutional: Negative. Negative for chills, fever and unexpected weight change.
HENT: Negative for ear pain, hearing loss, tinnitus and trouble swallowing.
Eyes: Negative. Negative for photophobia, pain and visual disturbance.
Respiratory: Negative for cough, choking and shortness of breath.
Cardiovascular: Negative for chest pain, palpitations and leg swelling.
Gastrointestinal: Negative for abdominal pain and vomiting.
Endocrine: Negative. Negative for cold intolerance.
Genitourinary: Negative for dysuria, flank pain and urgency.
Musculoskeletal: Negative for back pain, gait problem, neck pain and neck stiffness.
Skin: Negative for rash.
Allergic/Immunologic: Negative. Negative for immunocompromised state.
Neurological: Positive for transient right hand involuntary movements
Psychiatric/Behavioral: Negative for behavioral problems, confusion and hallucinations.
General: Well developed. In no acute distress.
Cardio: Regular rate and rhythm without murmur. Extremities are without cyanosis or edema.
Neuro:
Mental Status: Alert, oriented to person, place, and date. Normal attention and recall. Good fund of knowledge. Follows complex requests across the midline. Comprehension, naming, and repetition intact.
Cranial Nerves: . Pupils are equally round and reactive to light. EOMs full. Visual santana full to confrontation. No ptosis. No nystagmus. V1-V3 intact to light touch and pinprick bilaterally, symmetric. Face symmetric. Normal hearing AU.
The palate elevated well. SCMs and traps 5/5. Tongue midline. No dysarthria.
Motor: Normal bulk and tone. No pronator or arm drift. Strength 5/5 throughout. No clonus.
Reflexes: Negative Tracie's bilateral.
Sensory: Normal light touch.
Coordination: No dysmetria or tremor.
Gait: deferred
Assessment and Plan:
I. Symptomatic simple partial seizure.
II. [employer] metastatic disease
III. EtOH addiction
IV. Severe hypomagnesemia
V. LLL pulmonary mass, history of melamona
-Seizure precautions
-Continue Keppra 750 mg twice daily
-No antiplatelets or anticoagulants
-No driving
-Avoid magnesium level
-Continue thiamine oncology follow-up
-Outpatient neurology follow-up in 1-2 weeks
I personally reviewed all radiology and labs along with past medical records pertinent to current medical problems. Total time spent in patient care is 45 minutes.
Thank you for allowing us to participate in the care of this patient. Please do not hesitate to contact us with any questions or concerns.
Objective Data
Vital Signs
Temp Pulse Resp BP Pulse Ox
36.9 C 80 14 135/69 98
06/12/24 19:39 06/13/24 12:30 06/13/24 12:30 06/13/24 12:30 06/13/24 12:30
Lab Results
06/13/24 09:36
06/13/24 09:36
PT 14.8 Sec (11.4-14.6) H 06/11/24 21:52
INR 1.13 06/11/24 21:52
APTT 28.3 Sec (23.4-35.0) 06/11/24 21:52
Sodium 135 mmol/L (135-145) 06/13/24 09:36
Potassium 3.8 mmol/L (3.5-5.1) 06/13/24 09:36
BUN 12 mg/dl (9-20) 06/13/24 09:36
Glucose 178 mg/dl (70-99) H 06/13/24 09:36
Calcium 8.0 mg/dl (8.4-10.2) L 06/13/24 09:36
Phosphorus 2.9 mg/dl (2.5-4.5) 06/12/24 06:01
LDL Cholesterol, Calc 182 mg/dl 06/12/24 06:01
Patient Allergies
simvastatin Allergy (Verified 06/12/24 10:00)
Myalgia
Vital Signs and Labs
-
Vital Signs and Labs:
Vital Signs
Temp Pulse Resp BP Pulse Ox
36.4 C 88 26 111/58 95
06/13/24 19:39 06/13/24 19:00 06/13/24 19:00 06/13/24 19:00 06/13/24 19:53
Lab Results
06/13/24 09:36
06/13/24 09:36
PT 14.8 Sec (11.4-14.6) H 06/11/24 21:52
INR 1.13 06/11/24 21:52
APTT 28.3 Sec (23.4-35.0) 06/11/24 21:52
Sodium 135 mmol/L (135-145) 06/13/24 09:36
Potassium 3.8 mmol/L (3.5-5.1) 06/13/24 09:36
BUN 12 mg/dl (9-20) 06/13/24 09:36
Glucose 178 mg/dl (70-99) H 06/13/24 09:36
Calcium 8.0 mg/dl (8.4-10.2) L 06/13/24 09:36
Phosphorus 2.9 mg/dl (2.5-4.5) 06/12/24 06:01
LDL Cholesterol, Calc 182 mg/dl 06/12/24 06:01
Medications
-
Medications:
Generic Name Dose Route Start Last Admin
Trade Name Freq PRN Reason Stop Dose Admin
Acetaminophen 650 mg 06/12/24 00:15
Acetaminophen 325 Mg Tablet PO 07/10/24 00:14
Q4HPRN PRN
temp greater than 38C (100.4F)
Acetaminophen 650 mg 06/12/24 00:15
Acetaminophen 650 Mg Rectal Suppository RECTAL 07/10/24 00:14
Q4HPRN PRN
temp greater than 38C (100.4F)
Dexamethasone Sodium Phosphate 4 mg 06/12/24 01:00 06/13/24 17:08
Dexamethasone 4 Mg/Ml 1 Ml Vial IV 07/10/24 00:59 4 mg
Q6 OTTO Administration
Dextrose 12.5 grams 06/12/24 01:00
Dextrose 50% (0.5 Grams/Ml) 50 Ml Syringe IV 07/10/24 00:59
[id number] PRN
hypoglycemia
Protocol
Docusate Sodium 100 mg 06/12/24 08:00 06/13/24 19:54
Docusate Sodium 100 Mg Capsule PO 07/10/24 07:59 Not Given
BID OTTO
Folic Acid 1 mg 06/12/24 08:00 06/13/24 08:54
Folic Acid 1 Mg Tablet PO 07/10/24 07:59 1 mg
DAILY OTTO Administration
Glucagon 1 mg 06/12/24 01:00
Glucagon 1 Mg Vial IM 07/10/24 00:59
PRN PRN
hypoglycemia - no IV access
Protocol
Hydralazine HCl 5 mg 06/12/24 09:58
Hydralazine 20 Mg/Ml Vial IV 07/10/24 09:57
Q6HPRN PRN
SBP over 140 mm Hg
Folic Acid 1 mg/ Sodium 50.2 mls @ 200.8 mls/hr 06/12/24 00:15
Chloride IV 07/10/24 00:14
DAILYPRN PRN
if NPO
Insulin Glargine 6 units/ 0.06 mls @ 0 mls/hr 06/13/24 11:33
Device SC 07/10/24 21:59
HS OTTO
As Directed
Insulin Aspart 0 units 06/12/24 07:30 06/13/24 16:50
Insulin Aspart Moderate Resistance 300 Units/3 Ml Pen.Injctr SC 07/10/24 07:29 Not Given
AC OTTO
Protocol
Insulin Aspart 4 units 06/13/24 11:33 06/13/24 16:50
Insulin Aspart (100 Units/Ml) 3 Ml Flexpen SC 07/10/24 11:29 Not Given
AC OTTO
Labetalol HCl 10 mg 06/12/24 00:15 06/12/24 02:40
Labetalol Hcl 5 Mg/1 Ml (20 Mg/4 Ml) Injection IV 07/10/24 00:14 10 mg
Q6HPRN PRN Administration
SBP > 140 mmHg
Levetiracetam 750 mg 06/12/24 05:00 06/13/24 17:09
Levetiracetam (100 Mg/Ml) 500 Mg/5 Ml Vial IV 07/10/24 04:59 750 mg
Q12H OTTO Administration
Lisinopril 2.5 mg 06/12/24 08:00 06/13/24 08:56
Lisinopril 2.5 Mg Tablet PO 07/10/24 07:59 2.5 mg
DAILY OTTO Administration
Lorazepam 1 mg 06/12/24 00:15
Lorazepam 1 Mg Tablet PO 07/10/24 00:14
Q2HPRN PRN
MSAS 5-7
Lorazepam 1 mg 06/12/24 00:15
Lorazepam 2 Mg/Ml Vial IV 07/10/24 00:14
Q1HPRN PRN
MSAS 8-11
Lorazepam 2 mg 06/12/24 00:15
Lorazepam 2 Mg/Ml Vial IV 07/10/24 00:14
Q1HPRN PRN
MSAS > 11
Magnesium Oxide 500 mg 06/14/24 08:00
Magnesium Oxide 500 Mg Tablet PO 07/12/24 07:59
DAILY OTTO
Metoprolol Succinate 25 mg 06/12/24 08:00 06/13/24 08:55
Metoprolol 25 Mg Extended Release Tablet PO 07/10/24 07:59 25 mg
DAILY OTTO Administration
Pantoprazole Sodium 40 mg 06/12/24 10:00 06/13/24 08:55
Pantoprazole Sodium 40 Mg/10 Ml Vial IV 07/10/24 09:59 40 mg
DAILY OTTO Administration
Sodium Chloride 0 ml 06/12/24 00:15
Sodium Chloride 0.9% (Preservative Free) 10 Ml Vial IV 07/10/24 00:14
PRN PRN
To dilute IV Ativan
Protocol
Sodium Chloride 0 flush 06/12/24 01:00
Sodium Chloride 0.9% (Flush) Syringe IV 07/10/24 00:59
PER PROTOCOL OTTO
Sodium Chloride 10 ml 06/12/24 10:00 06/13/24 08:54
Sodium Chloride 0.9% (Preservative Free) 10 Ml Vial IV 07/10/24 09:59 10 ml
DAILY OTTO Administration
Thiamine HCl 200 mg 06/12/24 08:00 06/13/24 08:55
Thiamine (100 Mg/Ml) 2 Ml Vial IV 06/14/24 20:01 200 mg
Q12 OTTO Administration
Thiamine HCl 100 mg 06/15/24 08:00
Thiamine 100 Mg Tablet PO 07/13/24 07:59
BID OTTO
Home Medications
-
Home Medications
No Meds [No Current Medications] 06/12/24
[2024-06-13 16:11] LABS: Glucose - Point of Care 169 mg/dl (70-99)
[2024-06-13] MEDS: NOVOLOG FLEXPEN SC ×2 (16:50→19:00)
[2024-06-13] MEDS: TRANDATE 10 MG IV (20:26)
--- NOTE | 2024-06-13 21:45 | PTCARENOTE ---
Pt arrived to ICU room 3366 from ER via stretcher at 1925. Pt is IMU level of care. Admission database completed. Pt is A/O x4, cooperative with care but irritable about being here since he was allegedly told he could go home. No c/o pain. Physical
assessment completed, see nursing shift assessment flowsheet for full details. SR 80s on monitor, SpO2 95% on RA. BP upon arrival was in 160s, waited some time to recycle BP since pt had just been moving around, getting settled in room. Repeat BP
still in 150s. Medicated with PRN Labetolol (two PRN orders in EMAR, discussed with ICU clinical pharmacist who stated that Hydralazine might not be the best choice in a neuro patient, to start with Labetolol). Repeat BP in low 100s. Repeat in 30
min still about the same (see vital signs documentation for all VS details). [place] text sent to julita Hugo SENIOR BUDGET ANALYST to make her aware of situation. Since pt asymptomatic with the current low BP, no action to be taken at this time and just continue to
monitor BP. Call lucas and personal items within reach.
[2024-06-13 23:30] LABS: Glucose - Point of Care 179 mg/dl (70-99)
[2024-06-14] VITALS (15 sets, daily range): BP systolic 104–172; BP diastolic 57–98; BMI 23.1
[2024-06-14] MEDS: LANTUS 0.06 UNITS SC (00:03)
[2024-06-14] MEDS: DECADRON 4 MG IV ×4 (00:05→17:21)
[2024-06-14] MEDS: TRANDATE 10 MG IV (05:02)
[2024-06-14] MEDS: KEPPRA 750 MG IV ×2 (05:03→16:40)
[2024-06-14 05:52] LABS: Hematocrit 34.9 % (39.0-52.0); Hemoglobin 12.1 g/dL (13.0-18.0); Mean Corp Hgb Conc. 34.7 g/dL (33.0-37.0); Mean Corpuscular Hgb 31.8 pg (27.0-31.0); Mean Corpuscular Volume 91.8 fL (80.0-94.0); Mean Platelet Volume 11.1 fL (7.4-10.4); Platelet Count 114 10^3/uL (130-400); White Blood Cell Count 6.8 10^3/uL (4.8-10.8)
[2024-06-14 06:06] LABS: Blood Urea Nitrogen 17 mg/dl (9-20); Calcium 8.1 mg/dl (8.4-10.2); Carbon Dioxide 25 mmol/L (22-30); Chloride 99 mmol/L (98-107); Estimated Creatinine Clearance > 125 ml/min; Glucose 178 mg/dl (70-99); Magnesium 1.9 mg/dl (1.6-2.3); Potassium 3.7 mmol/L (3.5-5.1); Sodium 134 mmol/L (135-145); eGFR > 60.00
[2024-06-14] MEDS: ZESTRIL 2.5 MG PO (06:08)
--- NOTE | 2024-06-14 06:12 | PTCARENOTE ---
Around 0500 pt's BP in 170s. PRN Labetalol administered, see EMAR. Repeat BPs still elevated. AM dose of Lisinopril given early, around 0610, holding off on PRN Hydralazine in case it drops pt's BP too low.
--- NOTE | 2024-06-14 08:00 | PTCARENOTE ---
Resumed care of patient from prvious RN. Pt resting in bed at time of assessment. AAOx3. SR 70s on monitor, SpO2 95% on RA. VSS. AM meds given and tolerated. poor appetite reported. pulses weakly palpable. no edema. Min assist oob into bathroom.
awaiting bed at [facility] for cancer treatment and care. will continue to monitor.
[2024-06-14 08:02] LABS: Glucose - Point of Care 185 mg/dl (70-99)
[2024-06-14] MEDS: NOVOLOG FLEXPEN 4 UNITS SC ×2 (08:12→14:20)
[2024-06-14] MEDS: NOVOLOG FLEXPEN-MODERATE RESISTANCE 1 UNITS SC (08:14)
[2024-06-14] MEDS: THIAMINE INJECTION 200 MG IV (08:14)
[2024-06-14] MEDS: FOLVITE 1 MG PO (08:16)
[2024-06-14] MEDS: MAGNESIUM OXIDE 500 MG PO (08:16)
[2024-06-14] MEDS: COLACE 100 MG PO (08:17)
[2024-06-14] MEDS: NSS (PRESERVATIVE FREE) 10 ML IV (08:18)
[2024-06-14] MEDS: PROTONIX IV 40 MG IV (08:18)
--- NOTE | 2024-06-14 10:23 | W.PN.HOSP.TC ---
Addendum entered and electronically signed by Karla Dalton MD 06/14/24 22:42:
pancytopenia - unclear etiology, alcohol vs other,
Original Note:
Today's Communication/Plan
-
COVID test ordered per request from [facility]
Await transfer
Assessment / Plan
Assessment / Plan
59-year-old had a fall and seizure he was sitting down had cramping and uncontrolled contraction of his hands when he fell backwards also had a cramping pain in the leg as well. He has lymphoma and on chemotherapy last infusion was 3 weeks ago. He
had an MRI 3 weeks ago. He drinks regularly and last drink was 11 PM on the night prior to admission. Had 4 shots and 3 beers which is his usual alcohol intake
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 Severe neural foraminal narrowing C4-C5.
Mild spinal cord compression C2-C3, C3-C4, C5-C6. Severe neural foraminal narrowing C5-C6. Severe calcific atherosclerotic plaque in the proximal internal carotid arteries.
Head CT-multiple new hemorrhagic intraparenchymal brain metastasis 2 cm in the left frontal lobe, 1.3 cm in the left temporal lobe, 1.0 cm in the right temporal lobe, 9 mm in the right cerebellar hemisphere. Mild vasogenic edema and left frontal
and left temporal lobe metastasis. No midline shift. Mild to moderate diffuse cerebral and cerebellar volume loss.
CVS: S1-S2 normal
Chest: CTA B/L
Abdomen: Soft, NT , Bowel sounds present
Extremities: No edema,
FNP: No facial droop, no sensorimotor deficits, mild left pronator drift
# Partial seizures with hemorrhagic brain mass with mild vasogenic edema
Keppra 750 twice daily
As needed lorazepam
Decadron 4 mg IV every 6h
Transfuse to keep platelets more than 100 (114 today)
Transfuse more platelets this morning
Keep blood pressure less than 140 mmHg systolic with as needed labetalol and hydralazine
Neurochecks
Neurology evaluation appreciated
Awaiting transfer to [facility] was accepted by Dr. Mckenzie
# On treatment for melanoma -diagnosed in January 2024 with right flank excision of the lesion
Stated that he had 2 lymph nodes were removed from the right axilla per patient he gets treated at at [facility]
He gets the chemotherapy
PET scan April 2024 without any abnormal osseous lesions
I do not see an MRI of the brain done at that time but [facility]
# Hypokalemia-replaced
# Hypomagnesemia-replaced
# Thrombocytopenia -better
# Alcohol dependence and alcohol use daily
Watch for withdrawal
Thiamine
MSAS protocol
# Coronary disease history of CABG several years ago
Hold aspirin
Beta-richard started
Statin
# Hypertension-started on lisinopril and metoprolol. Continue as needed hydralazine, labetalol
# Diabetes
Sugars will run high with steroids
Lantus 6U and NovoLog 4U AC
# Atherosclerosis of internal carotid arteries. Eventually needs carotid ultrasound. Continue statin. No aspirin
# Vaping- Needs to stop
# GERD-start PPI
# DJD L5-S1
# Ex Smoker
# DVT prophylaxis-SCDs
# Full code
Discussed with nursing at bed side
Patient has not been taking any medicines prior to coming in
Anticipated Discharge: Within 24 hours
Subjective/Interval History
-
Date of Service: June 14, 2024
Objective Data
-
Labs:
Laboratory Results
06/14/24
05:20
WBC 6.8
Hgb 12.1 L
Hct 34.9 L
Plt Count 114 L
Sodium 134 L
Potassium 3.7
Chloride 99
Carbon Dioxide 25
BUN 17
Creatinine 0.5 L
Glucose 178 H
Calcium 8.1 L
Vital Signs:
Vital Signs
Temp Pulse Resp BP Pulse Ox
97.8 F 81 21 104/71 96
06/14/24 07:40 06/14/24 09:00 06/14/24 09:00 06/14/24 08:00 06/14/24 00:10
I&O
06/13/24 06/14/24 06/15/24
06:59 06:59 06:59
Intake Total 253 / 253 240 / 240
Balance 253 / 253 240 / 240
[2024-06-14] MEDS: TOPROL XL 25 MG PO (11:03)
[2024-06-14 11:25] LABS: COVID-19 Antigen Negative (Negative)
--- NOTE | 2024-06-14 11:59 | PN.CDI ---
CDI
- -
CDI:
Physician Documentation Request
Admit Date: 06/11/24 23:32
Dear Doctor Sha,
Please review the following and provide your response in the progress notes.
Clinical Indicators:
- Admit for partial seizures with brain metastasis
- On chemotherapy for melanoma
- Started on dexamethasone 06/11
Laboratory Tests
06/11/24 06/12/24 06/13/24
15:59 06:01 09:36
WBC 6.0 4.2 L 7.5
RBC 4.10 L 3.58 L 3.84 L
Plt Count 82 L 80 L 115 L D
Please clarify the diagnosis with the above findings
Pancytopenia due to chemotherapy
Pancytopenia
Other (please specify)
Use of terms such as suspected, likely, concern for, or probable (associated with a specific diagnosis that is being evaluated, monitored, or treated as if it exists) are acceptable and can be coded in the inpatient setting, when documented at the
time of discharge.
Thank you,
Duglas Gabriel RN
CDI Specialist
Please use your independent medical judgment in providing your response.
--- NOTE | 2024-06-14 12:47 | PTCARENOTE ---
reported negative covid swab to [facility]
[2024-06-14] MEDS: NOVOLOG FLEXPEN-MODERATE RESISTANCE SC ×2 (14:19→16:47)
--- NOTE | 2024-06-14 14:23 | PTCARENOTE ---
report given to Zenaida NAGEL from [place]. awaiting transfer times. will continue to monitor.
[2024-06-14 14:27] LABS: Glucose - Point of Care 136 mg/dl (70-99)
--- NOTE | 2024-06-14 14:58 | CM ---
CM following re: discharge planning.
Reviewed pt's chart, met with pt.
per MD, transfer to [facility] when accepted.
D/C plan: transfer to [facility].
[2024-06-14] MEDS: NOVOLOG FLEXPEN SC (16:47)
--- NOTE | 2024-06-14 16:47 | PTCARENOTE ---
Report rec'd from previous RN 16:00. Pt given scheduled Keppra, refused dinnertime Novolog as he just ate lunch and will not be eating dinner prior to transfer. boatbuilder supervisor scheduled for 17:30. Vital signs taken and filed. Safe environment maintained.
--- NOTE | 2024-06-14 18:01 | PTCARENOTE ---
Per loading unit operator, pickup time now 19:00. Pt updated.
--- NOTE | 2024-06-14 20:03 | PTCARENOTE ---
Received pt from previous RN. [facility] [place] picked [place] pt, report given, pt placed on cardiac cath lab radiology technologist for transfer.
== END 2024-06-14 20:18 | disposition short-term general hospital (02) | DRG 100 ==
LOC: ICU 23:32
PROVIDERS: Emergency Medicine; ADMITTING PHYSICIAN Internal Medicine; ATTENDING PHYSICIAN Hospitalist; CONSULT PHYSICIAN Psychiatry & Neurology Clinical Neurophysiology; EMERGENCY PHYSICIAN Emergency Medicine
PROC: 30233R1 Transfusion of Nonautologous Platelets into Peripheral Vein, Percutaneous Approach (ICD-10-PCS; 2024-06-11)
DX: G40.89 Other seizures (principal); G93.6 Cerebral edema; C85.99 Non-Hodgkin lymphoma, unspecified, extranodal and solid organ sites; C79.31 Secondary malignant neoplasm of brain; D61.818 Other pancytopenia; E11.9 Type 2 diabetes mellitus without complications; E78.00 Pure hypercholesterolemia, unspecified; F10.20 Alcohol dependence, uncomplicated; I10 Essential (primary) hypertension; I25.10 Atherosclerotic heart disease of native coronary artery without angina pectoris; E87.6 Hypokalemia; E83.42 Hypomagnesemia; M47.812 Spondylosis without myelopathy or radiculopathy, cervical region; M48.02 Spinal stenosis, cervical region; F17.290 Nicotine dependence, other tobacco product, uncomplicated; Z11.52 Encounter for screening for COVID-19; I25.2 Old myocardial infarction; Z79.899 Other long term (current) drug therapy; Z95.1 Presence of aortocoronary bypass graft; Z85.820 Personal history of malignant melanoma of skin; Z79.82 Long term (current) use of aspirin; Z79.4 Long term (current) use of insulin; Z79.02 Long term (current) use of antithrombotics/antiplatelets; Z79.891 Long term (current) use of opiate analgesic
CPT/HCPCS: 36430; 70450; 72125; 80048; 80053; 80061; 82962; 83036; 83735; 84100; 84484; 85025; 85027; 85610; 85730; 86850; 86900; 86901; 87811; 93005; 95816; 96361; 96365; 96366; 96375; 96376; 97162; 99285; P9073